=== PATIENT | female | born 1955 | race Two or more races ===

== ENCOUNTER 2020-03-10 07:17 | Emergency (ER) | payer BC ==
[~2020-03-10] VITALS: Ht 160 cm; Wt 81.6 kg
--- NOTE | 2020-03-10 07:17 | NUR ---
PT BIBRA FROM HOME C/O L ELBOW PAIN S/P SLIPPED AND FALL. PT IS AAOX4, NOT IN RESPIRATORY DISTRESS, V/S STABLE, KEPT RESTED AND COMFORTABLE. WILL CONTINUE TO MONITOR.
[2020-03-10] MEDS ORDERED: MORPHINE SULFATE INJ 4 MG/ML DISP.SYRIN ONE ×2 (07:26→09:00)
[2020-03-10] MEDS: MORPHINE SULFATE INJ 2 MG/ML DISP.SYRIN IV ONE ×2 (07:30→09:03)
--- NOTE | 2020-03-10 07:30 | NUR ---
IV LINE ESTABLISHED.
--- NOTE | 2020-03-10 07:55 | NUR ---
GENERAL COUNSELOR AT BEDSIDE FOR XRAY.
[2020-03-10] MEDS ORDERED: KETOROLAC TROMETHAMINE 15 MG/ML VIAL ONE (09:20)
[2020-03-10] MEDS: KETOROLAC TROMETHAMINE INJ 30 MG/ML VIAL IV ONE (09:29)
--- NOTE | 2020-03-10 09:40 | NUR ---
SHOULDER IMMOBILIZER APPLIED.
--- NOTE | 2020-03-10 09:45 | NUR ---
IV removed. Catheter intact and site benign. Pressure and 4x4 applied to site. No bleeding noted. Patient discharged to home in stable condition. Written and verbal after care instructions given. Patient verbalizes understanding of instruction.
[2020-03-10 09:46] VITALS: BP 126/78
== END 2020-03-10 09:46 | disposition home or self-care (01) ==
LOC: ER 07:19
DX: S52.122A Displaced fracture of head of left radius, initial encounter for closed fracture (principal); I10 Essential (primary) hypertension; E11.9 Type 2 diabetes mellitus without complications; W10.8XXA Fall (on) (from) other stairs and steps, initial encounter; Y93.01 Activity, walking, marching and hiking; Y92.89 Other specified places as the place of occurrence of the external cause; Y99.8 Other external cause status
CPT/HCPCS: 29105; 73080; 73090; 96374; 96375; 96376; 99284; J1885; J2270 ×2